=== PATIENT | male | born 1960 | race Caucasian/White ===

== ENCOUNTER 2023-04-26 17:18 | Emergency (ER) | payer OTHER, SELFPAY ==
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
--- NOTE | 2023-04-26 17:22 | ECG_ITS ---
Measurements Intervals [place] Rate: 64 P: 51 TN: 195 QRS: 42 QRSD: 86 T: 48 QT: 375 QTc: 388 Interpretive Statements SINUS RHYTHM NORMAL ECG NO PREVIOUS ECG AVAILABLE FOR COMPARISON Electronically Signed On 04-26-2023 20:23:47 CDT by Mikey Romero D.O.
[2023-04-26 18:29] VITALS: BP 134/80; PULSE 70; RESP 18; TEMP 37.3; O2SAT 97
[2023-04-26 20:03] VITALS: BP 134/80; PULSE 73; RESP 16; TEMP 37; O2SAT 97
--- NOTE | 2023-04-26 21:21 | PC.NURSE ---
no answer at triage
== END 2023-04-26 21:35 | disposition left against medical advice (07) ==
PROVIDERS: Emergency Provider Emergency Medicine
DX: R07.1 Chest pain on breathing (principal); V49.40XA Driver injured in collision with unspecified motor vehicles in traffic accident, initial encounter
CPT/HCPCS: 71046; 93005; 99199